=== PATIENT | male | born 1955 | race Caucasian/White ===

== ENCOUNTER 2016-10-22 04:16 | Emergency (ER) | payer MEDICARE ==
[2016-10-22] MEDS ORDERED: NITROGLYCERIN 0.4 MG TAB SL PRN (04:20)
[2016-10-22 04:36] VITALS: TEMP 98.6
[2016-10-22] MEDS ORDERED: LORAZEPAM 2 MG/ML SOL IV ONE (04:38)
[2016-10-22] MEDS ORDERED: LORAZEPAM 2 MG/ML SOL ONE (04:43)
[2016-10-22] MEDS: SODIUM CHLORIDE 0.9% FLUSH 10 ML SOL IV PRN ×2 (04:45→07:15)
[2016-10-22 04:47] LABS: BASOPHILS % (AUTO) 1 % (0-3); EOSINOPHILS % (AUTO) 1 % (0-9); HEMATOCRIT 38 % (39-53); MEAN CORPUSCULAR HGB CONC 36.1 gm/dl (32.0-36.0); MEAN CORPUSCULAR VOLUME 82 fL (80-100); MONOCYTES % (AUTO) 4.5 % (0-12); NEUTROPHILS % (AUTO) 74.4 % (37-80)
[2016-10-22 05:05] LABS: CALCIUM 7.8 mg/dl (8.5-10.1); POTASSIUM 4.2 mMol/L (3.5-5.1)
[2016-10-22] MEDS ORDERED: HEPARIN SODIUM 5000 U/ML SOL IV ONE (07:21)
[2016-10-22] MEDS ORDERED: HEPARIN SODIUM 5000 U/ML SOL ONE (07:21)
[2016-10-22] MEDS ORDERED: FUROSEMIDE 20mg SOL IV ONE (07:25)
[2016-10-22] MEDS ORDERED: FUROSEMIDE 20mg SOL ONE (07:25)
[2016-10-22] MEDS ORDERED: HEPARIN IV SCH (07:30)
[2016-10-22 08:04] VITALS: O2SAT 93
[2016-10-22 08:06] VITALS: BP 143/87; PULSE 75; RESP 15
[2016-10-22] MEDS ORDERED: NITROGLYCERIN 5 MG/ML 50 MG in DEXTROSE 250 ML 250 ML IV PRN (08:06)
[2016-10-22] MEDS ORDERED: NITROGLYCERIN 0.4 MG TAB SL ONE (08:06)
== END 2016-10-22 08:20 | disposition short-term general hospital (02) | DRG 313 ==
LOC: ED 04:16
DX: R07.9 Chest pain, unspecified (principal); E11.9 Type 2 diabetes mellitus without complications; Z79.4 Long term (current) use of insulin
CPT/HCPCS: 36415; 71010; 80048; 82550; 82962; 84484; 85025; 85610; 85730; 93005; 96365; 96374; 96375; 99285; 99291; J1644; J1940; J2060